=== PATIENT | female | born 2000 | race American Indian/Alaskan Native ===

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

== ENCOUNTER 2018-01-21 23:14 | Emergency (ER) | payer OTHER ==
--- NOTE | 2018-01-22 00:15 | OBHP ---
Datetime: 01/22/2018 00:02 IP Adm Impression: , intrauterine IP Admit Plan: Discharge home Admit Comment, IP Provider: @ 31.2 wks GA c/o back pain and cramping. pt reprots urinary jas uqency and urgency no dysuira. Pt preorts back pain thorughou tthe but worsenign thought . pt preots she has had a few uti this and most recenlty a week ago and admit to not f insihing treatment. pt denies any blood in urine, fever, chills, nause, vomiting, chest pain , sob, c onsipation, vaignal dischrage, itching, odor. Pt denies any headaches, blurry vision, RUQ/epigastric pain. Pt denies any ctx, lof, vb, +FM. As per nurse, pt was on the phone yelling at her parnter to co me to hospital. Pt did not want to elaborate. OB: ETOP x 1 , SAB x 1 DIAL MOUNTER: Denies ANTE: PNC At [facility] PMH: Asthma (last inhaler use moanths ago, carey hospitalization or intubations PSH: DxC FHX: non contribotry MEDS: PNV NKDA SHX: negative etoh/tobacc/drugs A/P @ 31.2 wks with lower back pain and cystistis -f/u UA -for NST -Rx Keflex: importnace of compliance dw paitne -no evdinec of pyelonehpitirl or labor -advsie f/u OBGYN within 1 week for follow up -fever, pain precautions given -hydration, cranberry juice -back pain: tyoenol prn, back brace adn f/u obgyn - labor purecation given Pelvic Type - PN: Adequate Extremities - PN: Normal Abdomen - PN: Normal Back - PN: Normal Breast - PN: Normal Lungs - PN: Normal Heart - PN: Normal Thyroid - PN: Normal Neurologic - PN: Normal HEENT - PN: Normal General - PN: Normal Presentation-Admit: Vertex FHR - Baseline A Provider: 150 Membranes, Provider: Intact Comments, ACOG Physical Exam: GEN: NAD, AAO x 3 RESP: CQAB?l CVS: RRR< +S1/S2 ABD: soft, Nt, ND, no guarigdn no reoubdn tednere nor igidty ,no papalbe ctx VE: Bladder; TTP Cervix; long/closed/pstieorr, non tnder Vagina; no gross discharge, no blood utuersu: non tender Adenxa; lmited non tender Gestation - Est Wks by US: 31.2 EGA AdmitDate IP: 31.2 Vital Signs Provider: Reviewed Vital Signs Provider Details: BP 141/80 repeat 125/52 IP Chief Complaint: Uterine contractions NICHD Variability Prov Fetus A: Moderate 6-25bpm FHR Category Provider Fetus A: Category I NICHD Decel Fetus A IP Provider: None Dilatation, Provider: 0 Effacement, Provider: 0 Genitourinary Exam: Abnormal DTRs - PN: Normal
--- NOTE | 2018-01-22 00:20 | OBDCSUM ---
Datetime: 01/22/2018 00:18 Discharged to, Provider: Home Follow up at, Provider: clinic Discharge Instructions, Provider: Routine instructions given Discharge Time: 01/22/2018 00:19 Follow up in weeks, Provider: within 1 week Discharge Comment, Provider: fever, pian, precautin given Discharge Diagnosis Prov Other: UTI in prengancy
[2018-01-22 00:27] LABS: SQUAMOUS EPITHIAL 4 /hpf (0-5); URINE BACTERIA RARE (<OCC); URINE BILIRUBIN NEGATIVE (NEGATIVE); URINE BLOOD NEGATIVE (NEGATIVE); URINE CLARITY Hazy (Clear); URINE COLOR Yellow (YELLOW); URINE GLUCOSE (UA) NORMAL (Normal); URINE LEUKOCYTE ESTERASE 1+ Leu/uL (Negative); URINE PROTEIN 1+ mg/dL (NEGATIVE)
[2018-01-22 05:08] VITALS: BP 133/64; PULSE 80; TEMP 98
== END 2018-01-22 01:07 | disposition home or self-care (01) ==
LOC: C.EROB 23:14
DX: O23.13 Infections of bladder in pregnancy, third trimester (principal); M54.5 Low back pain; Z3A.31 31 weeks gestation of pregnancy

== ENCOUNTER 2018-02-18 21:36 | Emergency (ER) | payer OTHER ==
[2018-02-19 00:54] LABS: BASO % 0.2 % (0.0-2.0); EOS # 0.2 K/uL (0.0-0.7); EOS % 0.9 % (0.0-4.0); HEMOGLOBIN 9.7 g/dL (11.0-16.0); LYMPH # 2.5 K/uL (1.0-4.3); LYMPH % 14.2 % (20.0-40.0); MEAN CELL VOLUME 78.5 fL (81.0-99.0); MEAN CORPUSCULAR HEMOGLOBIN 26.2 pg (27.0-31.0); MEAN CORPUSCULAR HGB CONC 33.3 g/dL (33.0-37.0); MEAN PLATELET VOLUME 7.1 fL (7.2-11.7); MONO # 0.8 K/uL (0.0-0.8); MONO % 4.5 % (0.0-10.0); NEUT # 14.4 K/uL (1.8-7.0); NEUT % 80.2 % (50.0-75.0); RBC 3.71 Mil/uL (3.80-5.20); RED CELL DISTRIBUTION WIDTH 15.4 % (11.5-14.5); WHITE BLOOD COUNT 17.9 K/uL (4.8-10.8)
[2018-02-19 01:19] LABS: ALB/GLOB RATIO 1.1 (1.0-2.1); ALBUMIN 3.9 g/dL (3.5-5.0); ALT/SGPT 14 U/L (9-52); AST/SGOT 14 U/L (14-36); BLOOD UREA NITROGEN 12 mg/dL (7-17); CALCIUM 9.2 mg/dl (8.6-10.4); GFR NON-AFRICAN AMERICAN > 60; URIC ACID 3.4 mg/dL (2.2-7.5)
[2018-02-19 01:28] LABS: CREATININE, RANDOM URINE 253.5 mg/dL
[2018-02-19 01:53] LABS: INR 1.1; PROTHROMBIN TIME 11.6 SECONDS (9.7-12.2)
[2018-02-19 06:46] VITALS: BP 128/50; PULSE 78; RESP 20; TEMP 97.5
--- NOTE | 2018-02-19 09:28 | US ---
Date of service: 02/18/2018 PROCEDURE: Biophysical profile HISTORY: Decreased movements COMPARISON: None from this TECHNIQUE: Standard protocol for this study/examination. FINDINGS: FINDINGS: Biophysical profile score 8/8 Based on the followin. breathing movements: 2/2 2. Gross body movement: 2/2 3. tone: 2/2 4. Qualitative amniotic fluid index: 2/2 Cephalic presentation. Posterior fundal placenta. No evidence of abruption or previa Gestational age derived from LMP 35 weeks 3 days. CHEO 03/22/2018. Gestational age derived from the following biometric parameters 35 weeks 2 days. CHEO 03/23/2018 Biparietal diameter 8.7 cm Head circumference 31.8 cm Abdominal circumference 31.1 cm Femur length 6.9 cm Estimated weight 2600 g Calculated cardiac rate 148 beats per min. Closed cervix measuring 3.48 cm IMPRESSION: Biophysical profile score 8/8. Thirty-five weeks 2 days live intrauterine gestation. Gestational concordance documented. Concordant results (preliminary interpretation) provided by [facility]. Procedure Completed: 23:23 Preliminary ([facility]) Report: Dictated and Authenticated: 00:52 February 19, 2018. Final Interpretation: 09:26. February 19, 2018.
== END 2018-02-19 02:25 | disposition home or self-care (01) ==
LOC: C.EROB 21:36
DX: O36.8130 Decreased fetal movements, third trimester, not applicable or unspecified (principal); Z3A.35 35 weeks gestation of pregnancy